=== PATIENT | male | born 1995 ===

== ENCOUNTER 2017-05-03 20:45 | Emergency (ER) | payer BC ==
[2017-05-03] MEDS ORDERED: BUDESONIDE 0.5MG/2ML AMPUL.NEB NEB ONE (21:53)
[2017-05-03] MEDS ORDERED: IPRATROPIUM/ALBUTEROL SULFATE 3 ML AMPUL.NEB NEB ONE (21:53)
--- NOTE | 2017-05-03 22:35 | ED Physician Documentation ---
Ankle Injury - HISTORIAN Historian: patient - HPI Stated Complaint: right ankle pain Chief Complaint: Ankle Injury Additional Information: twisted playing basketball, played 2 more games on it after twisting it Onset: hours (2) Where: other ([place]) Severity: mild r: twist Associated Symptoms:: other (hurts 4/10 to walk on it) Modifying Factors:: pain on movement Further Comments: no - ROS CONST: no problems CVS/RESP: none NEURO: denies: headache, head injury, dizziness GI/: denies: problems urinating, nausea, vomiting MS/SKIN/LYMPH: other (right ankle pain) - PAST HX Past History: none Immunizations: referred to PCP Allergies/Adverse Reactions: Allergies Allergy/AdvReac Type Severity Reaction Status Date / Time No Known Allergies Allergy Verified 05/03/17 21:05 Home Medications: Ambulatory Orders Medication Instructions Recorded NK [NK] 05/03/17 - SOCIAL HX Smoking History: cigarettes Alcohol Use: none Drug Use: methamphetamines - FAMILY HX Family History: no significant history - VITAL SIGNS Vital Signs: Vital Signs Temp Pulse Resp BP Pulse Ox 98.4 F 68 16 126/62 99 05/03/17 20:55 05/03/17 20:55 05/03/17 20:55 05/03/17 20:55 05/03/17 20:55 - REVIEWED ASSESSMENTS Nursing Assessment Reviewed: Yes Vitals Reviewed: Yes Progress - Results/Orders Results/Orders: right ankle x-ray ordered - Progress Progress: pt. stable entire time in er - kina, ice, elevate, crutches Critical Care Note - Critical Care Note Total Time (mins): 0 ED Results Lab/Radiology - Lab Results Lab Results: none ordered - Radiology Radiology Impressions: right ankle x-ray neg for fx or dislocation - Orders Orders: ED Orders Category Date Time Status RIGHT ANKLE [ANKLE 3 VIEWS OR MORE] [RAD] Stat Exams 05/03/17 Ordered Budesonide [Pulmicort] Med 05/03/17 21:53 Discontinued 0.5 mg NEB .STK-MED ONE Ipratropium/Albuterol Sulfate [Duoneb] Med 05/03/17 21:53 Discontinued 3 ml NEB .STK-MED ONE Ankle Injury Physical Exam - Physical Exam General Appearance: no acute distress, alert Foot: right foot: non-tender, normal inspection, normal range of motion, no evidence of injury Ankle: right: normal range of motion, bone tenderness (distal fibula), other ( no lig. laxity, no deformity, no edema right ankle) Gait: limited by pain (minimally) Neuro: sensation nml, motor nml Vascular: no vascular compromise Tendons: tendon function nml Leg/Knee/Thigh: uninjured above ankle Skin: intact, warm Head/ENT: nml inspection, pharynx nml Neck/Back: nml inspection, non-tender Resp/CVS: chest non-tender, breath sounds nml Abdomen: non-tender, pelvis stable Discharge Clincal Impression: Ankle sprain Qualifiers: Encounter type: initial encounter Involved ligament of ankle: calcaneofibular ligament Laterality: right Qualified Code(s): S93.411A - Sprain of calcaneofibular ligament of right ankle, initial encounter Referrals: Primary Doctor,No [Primary Care Provider] - 2 Days Comments: discharged in stable condition with crutches, kina, ice, elevation and Ibuprofen 800 mg p.o. tid Condition: Stable Disposition: 01 HOME, SELF-CARE Decision to Admit: NO Decision Time: 22:34
[2017-05-03 22:56] VITALS: BP 106/72
--- NOTE | 2017-05-04 06:52 | Diagnostic Imaging Report ---
SHELDON RANKIN [facility] [id number] [facility]ly [facility] [address] [place] [address]. [id number] Report Submission Date: May 03, 2017 9:57:07 PM CDT Patient Study Name: JAMILAH GASPAR Date: May 03, 2017 9:34:00 PM CDT Modality Type: CR Gender: M Description: LOWER EXTREMITY : 97 Institution: [facility] Physician: SHELDON RANKIN Right ankle 3 views Clinical history pain Technique AP lateral oblique Findings: There is no fracture or dislocation. Bone density is normal. Impression: Negative study Electronically signed on May 03, 2017 9:57:07 PM CDT by: Froylan MANN
== END 2017-05-03 22:45 | disposition home or self-care (01) ==
LOC: ED 20:45
DX: S93.411A Sprain of calcaneofibular ligament of right ankle, initial encounter (principal); X58.XXXA Exposure to other specified factors, initial encounter; Y93.9 Activity, unspecified; Y99.9 Unspecified external cause status
CPT/HCPCS: 73610; 99283; J7626